=== PATIENT | male | born 1940 | race Caucasian/White ===

== ENCOUNTER 2021-12-15 11:19 | Day surgery (SDC) | payer MEDICARE, MEDICAID ==
[2021-12-14 09:54] VITALS: BMI 37.8
[2021-12-15] MEDS ORDERED: EPINEPHrine 1 MG/ML AMP ONE ×2 (13:30→16:42)
[2021-12-15] MEDS ORDERED: Fentanyl 100 MCG/2 ML VIAL ONE (16:22)
[2021-12-15] MEDS ORDERED: Dexamethasone 20 MG/5 ML VIAL ONE (16:36)
[2021-12-15] MEDS ORDERED: ePHEDrine 50 MG/ML VIAL ONE (16:36)
[2021-12-15] MEDS ORDERED: Ondansetron PF 4 MG/2 ML Vial ONE (16:36)
[2021-12-15] MEDS ORDERED: PROPOFOL 200 MG/20 ML VIAL ONE (16:36)
[2021-12-15] MEDS ORDERED: Rocuronium Bromide 10 MG/ML (10ML VIAL) ONE (16:36)
[2021-12-15] MEDS ORDERED: Glycopyrrolate 0.2 MG/ML 5 ML SYRINGE ONE (16:36)
[2021-12-15] MEDS ORDERED: NEOSTIGMINE 3 MG/3 ML SYR 3 MG/3 ML SYRINGE ONE (16:36)
[2021-12-15] MEDS ORDERED: SUGAMMADEX SODIUM 200 MG/2 ML VIAL ONE (17:50)
== END 2021-12-15 18:35 | disposition home or self-care (01) ==
LOC: SDC 11:19
PROVIDERS: ATTEND Student in an Organized Health Care Education/Training Program
PROC: 0CBT8ZZ Excision of Right Vocal Cord, Via Natural or Artificial Opening Endoscopic (ICD-10-PCS; principal; 2021-12-15)
DX: C32.0 Malignant neoplasm of glottis (principal); H61.23 Impacted cerumen, bilateral; I10 Essential (primary) hypertension; E78.5 Hyperlipidemia, unspecified; I25.10 Atherosclerotic heart disease of native coronary artery without angina pectoris; Z87.891 Personal history of nicotine dependence; Z79.899 Other long term (current) drug therapy; Z95.5 Presence of coronary angioplasty implant and graft
CPT/HCPCS: 88305; J0171; J1100; J2405; J2704; J3010; J3490

== ENCOUNTER 2022-02-01 07:51 | Outpatient (CLI) | payer MEDICARE, MEDICAID ==
[2022-02-01] MEDS ORDERED: Iopamidol 370 76% 100 ML VIAL ONE (15:53)
== END 2022-02-01 07:52 | disposition home or self-care (01) ==
LOC: CT 07:51
PROVIDERS: ATTEND Radiology Radiation Oncology
DX: C32.9 Malignant neoplasm of larynx, unspecified (principal)
CPT/HCPCS: 70491; 71260; Q9967